=== PATIENT | female | born 1985 | race Caucasian/White ===

== ENCOUNTER 2016-10-09 17:00 | Inpatient (IN) | payer OTHER ==
[~2016-10-09] VITALS: Ht 170.2 cm; Wt 259.5 kg
--- NOTE | 2016-10-10 07:13 | HP ---
ADMIT: 10/09/2016 RM/LOC: 432 [facility] MR#: [id number] [address] [facility] [address] [place] [id number] [address] [place] [address] History and Physical SEX: F AGE: 31 : 1985 DATE OF SERVICE: CHIEF COMPLAINT: Leg pain and fever. HISTORY OF PRESENT ILLNESS: The patient is an extremely pleasant, 31-year-old female, known to me from clinic, who reports about 24 hours of increasing leg pain, redness, and fevers. Fever up to 102.7. Was seen in outside ER. Early sepsis. They were not able provide level of care given her bariatric status, so transferred here. I am very familiar with her from clinic. The patient otherwise had been in her usual state of health. No new shortness of breath. Has had a cough little bit recently. This was mostly nonproductive. She is able to work a normal 8-hour shift where she is on her feet all day as of yesterday. No upset stomach. Some headache now. No nausea. No vomiting. PAST MEDICAL HISTORY: 1. Recurrent cellulitis. Sometimes, MRSA in the past. 2. Hypertension. 3. Chronic lymphedema. 4. Morbid obesity. FAMILY HISTORY: Significant for diabetes in her father. Multiple other family members distant also of diabetes. SOCIAL HISTORY: Nonsmoker, lives at home. Works at [employer], is on her feet all day long. Works full schedule. REVIEW OF SYSTEMS: As per HPI. Otherwise, completely reviewed and negative. MEDICATIONS: She is on: 1. Spironolactone 50 mg a day. 2. Torsemide 20 mg 2 tablets daily. LABORATORY AND X-RAY DATA: Her creatinine is 0.6. AST and ALT within normal limits. Hemoglobin 13.8, glucose is 253, and white blood cell count is 20.6. PHYSICAL EXAMINATION: VITAL SIGNS: Temperature is 102.7, blood pressure 130/78, pulse is 112, O2 saturation 100% on room air, and weight is 571 pounds reportedly. GENERAL: She is alert and oriented x3 in no acute distress, pleasant as always. HEENT: Normocephalic and atraumatic. Pupils equal, round, and reactive to light and accommodation. Extraocular muscles are intact. Moist mucous membranes. NECK: No lymphadenopathy. Soft, supple. Trachea midline. LUNGS: Clear to auscultation bilaterally. Diminished at bases bilaterally. HEART: Regular rate and rhythm. No murmurs, rubs, or gallops. ABDOMEN: Soft, nontender, nondistended. Bowel sounds present. EXTREMITIES: No cyanosis, clubbing. She has 1+ pitting edema present bilaterally. Her left lower extremity, she has a large area of cellulitis ADMIT: 10/09/2016 RM/LOC: 432 [facility] MR#: [id number] [address] [id number] [address] [place] [address] History and Physical SEX: F AGE: 31 : 1985 above her ankle and about to the upper [address] her left lower calf. Some purplish huing as well. No fluctuance. No abscess palpable. MUSCULOSKELETAL: 5/5 strength in all 4 extremities. NEUROLOGICAL: No focal deficits noted. Cranial nerves II through XII grossly intact. PSYCHIATRIC: Very pleasant as always. ASSESSMENT/PLAN: 1. Cellulitis. 2. Early sepsis. 3. Lymphedema, chronic. 4. Severe morbid obesity. PLAN: At this point in time, we will give her antibiotics and IV fluids for now. I will release her once she is more stable. Do vancomycin, and we will see how she does over the next 24 hours. She has blood sugar of greater than 250 on outside lab. We will check an A1c given her family history of diabetes. Otherwise, monitor renal function closely. She reports she has a history of kidney issues on the vancomycin in the distant past. We will just watch her closely for now. The patient is agreeable to plan. Kulwant Rodgers MD/ iris JOB #: [id number] CC: Kulwant Rodgers, Attending Physician Shahzad Srivastava, Family Physician
[2016-10-14] MEDS ORDERED: CULTURELLE1 CAP PO (15:07)
[2016-10-14] MEDS ORDERED: ALDACTONE DPS25 MG PO (15:07)
[2016-10-14] MEDS ORDERED: DEMADEX20 MG PO (15:07)
[2016-10-14] MEDS ORDERED: VIBRAMYCIN-DPS100 M2 PO (15:07)
[2016-10-14] MEDS ORDERED: LEVAQUIN DPS500 MG PO (15:07)
[2016-10-14] MEDS ORDERED: NYSTATIN CREAM15 GM TP (15:08)
--- NOTE | 2016-10-28 06:57 | DS ---
ADMIT: 10/09/2016 RM/LOC: 432 [facility] MR#: [id number] [address] [address] [address] [place] [id number] General Discharge Summary SEX: F AGE: 31 : 1985 ADMISSION DATE: 10/09/2016 DISCHARGE DATE: 10/13/2016 FINAL DIAGNOSES: 1. Cellulitis with sepsis. 2. Obesity. 3. Lymphedema. 4. Hypertension. 5. Diabetes. REASON FOR ADMISSION: This is a 31-year-old female, chronic lymphedema, presented with lower extremity redness and fevers. She was found to have cellulitis with sepsis. She was initially treated with antibiotics with vancomycin. She continued to not feel well, elevated temps, so Zosyn was added on the , then she started to improve. On the , I stopped her Zosyn and vancomycin and started her on Levaquin and doxycycline orally to see how she would do. By the next day, she was still doing pretty well, had good diuresis. CRP was 5.49 on that day, so she was set up to be discharged with close followup. MEDICATIONS: 1. She will be on 10 days of Levaquin 500 daily and doxycycline 100 mg b.i.d. 2. She will be on Culturelle one daily. 3. Aldactone 25 mg daily. 4. Nystatin cream p.r.n. 5. Demadex 20 mg daily. Follow up with Dr. Rodgers this coming week. Low-salt diet. She should have a BMP, CBC, and CRP on followup. Marc Archer MD/ iris JOB #: [id number] CC: Kulwant Rodgers MD, Attending Physician Shahzad Srivastava MD Resident, Family Physician
== END 2016-10-13 10:00 | disposition home or self-care (01) | DRG 872 ==
LOC: 4PCU 17:00
PROVIDERS: ADMIT Internal Medicine
DX: A41.9 Sepsis, unspecified organism (principal); Z68.45 Body mass index [BMI] 70 or greater, adult; I10 Essential (primary) hypertension; L03.116 Cellulitis of left lower limb; E66.01 Morbid (severe) obesity due to excess calories; I89.0 Lymphedema, not elsewhere classified; E11.9 Type 2 diabetes mellitus without complications